=== PATIENT | male | born 1955 | race Caucasian/White ===

== ENCOUNTER 2019-11-19 23:04 | Inpatient (IN) | payer MEDICARE, OTHER ==
[~2019-11-19] VITALS: Ht 165.1 cm; Wt 88.6 kg
[2019-11-19 23:48] LABS: BASOPHILS ABSOLUTE AUTO 0.08 K/mm3 (0.00-0.23); BASOPHILS PERCENT AUTO 1 % (0-2); EOSINOPHILS ABSOLUTE AUTO 0.47 K/mm3 (0.00-0.68); EOSINOPHILS PERCENT AUTO 3 % (0-6); Hematocrit 33.7 % (37.0-53.0); Hemoglobin 10.5 g/dL (13.5-17.5); IMMATURE GRAN ABSOLUTE AUTO 0.13 K/mm3 (0.00-0.10); IMMATURE GRAN PERCENT AUTO 1 % (0-1); LYMPHOCYTES ABSOLUTE AUTO 2.17 K/mm3 (0.84-5.20); LYMPHOCYTES PERCENT AUTO 16 % (21-46); MONOCYTES ABSOLUTE AUTO 0.99 K/mm3 (0.16-1.47); MONOCYTES PERCENT AUTO 7 % (4-13); Mean Corpuscular HGB 30.6 pg (26.0-34.0); Mean Corpuscular HGB Conc 31.2 g/dL (31.5-36.5); Mean Corpuscular Volume 98 fL (80-100); NEUTROPHILS ABSOLUTE AUTO 9.92 K/mm3 (1.96-9.15); NEUTROPHILS PERCENT AUTO 72 % (41-73); Platelet Count 283 K/mm3 (150-400); RDW Coefficient Variation 14.3 % (11.7-14.2); RDW Standard Deviation 51.2 fL (35.1-46.3); Red Blood Cell Count 3.43 M/mm3 (4.30-5.90); White Blood Cell Count 13.76 K/mm3 (4.00-11.30)
[2019-11-20 00:06] LABS: Albumin, Blood 3.3 g/dL (3.4-5.0); Albumin/Globulin Ratio 0.8 (0.8-1.8); Bilirubin, Total 0.3 mg/dL (0.1-1.0); Bun/Creatinine Ratio 6.7 (12.0-20.0); Calcium, Blood 8.8 mg/dL (8.5-10.1); Creatinine, Blood 9.89 mg/dL (0.60-1.20); Potassium, Blood 5.7 mmol/L (3.5-5.5); Total Protein, Blood 7.3 g/dL (6.4-8.2); Troponin I 0.5 ng/mL (0.000-0.040)
[2019-11-20 00:28] LABS: Magnesium, Blood 2.2 mg/dL (1.6-2.4)
[2019-11-20 00:41] LABS: Phosphorus, Blood 10.8 mg/dL (2.5-4.9)
--- NOTE | 2019-11-20 02:21 | NUR ---
64 YR OLD MALE ADMITTED TO FLOOR FROM THE ED. SCHEDULED FOR DIALYSIS TODAY. ALERT AND ORIENTED. ORIENTED TO CALL LIGHT USE. CALL LIGHT IN REACH.
--- NOTE | 2019-11-20 05:06 | NUR ---
64 YR OLD MALE ADMITTED TO FLOOR FROM THE ED WITH DX OF FLUID OVERLOAD AND HAVING CHEST PAIN. DUE FOR HEMODIALYSIS TODAY. ORIENTED TO USE OF CALL LIGHT, CALL LIGHT IN REACH. RECEIVED ANALGESIC FOR CHEST PAIN AFTER MD WAS NOTIFIED RE SAID COMPLAINT - SEE MAR FOR DETAILS. CURRENTLY ASYMPTOMATIC.
[2019-11-20 09:01] LABS: Hematocrit 29.7 % (37.0-53.0); Hemoglobin 9.3 g/dL (13.5-17.5); Mean Corpuscular HGB 30.4 pg (26.0-34.0); Mean Corpuscular HGB Conc 31.3 g/dL (31.5-36.5); Mean Corpuscular Volume 97 fL (80-100); Mean Platelet Volume 9.9 fL (9.1-12.4); Platelet Count 247 K/mm3 (150-400); RDW Coefficient Variation 14.2 % (11.7-14.2); RDW Standard Deviation 50.3 fL (35.1-46.3); Red Blood Cell Count 3.06 M/mm3 (4.30-5.90); White Blood Cell Count 10.21 K/mm3 (4.00-11.30)
[2019-11-20 09:22] LABS: CPK Creatine Kinase 118 U/L (39-308); Cholesterol 140 mg/dL (50-200); HDL Cholesterol 47 mg/dL (>39); LDL/HDL RATIO 1.6; Low Density Lipoprotein Chol 75 mg/dL (0-110); Triglycerides 90 mg/dL (30-160); Very Low Density Lipoprot Chol 18 mg/dL (6-32)
[2019-11-20 09:55] LABS: Albumin, Blood 2.9 g/dL (3.4-5.0); Albumin/Globulin Ratio 0.9 (0.8-1.8); Bilirubin, Total 0.3 mg/dL (0.1-1.0); Calcium, Blood 8.5 mg/dL (8.5-10.1); Globulin, Blood 3.4 g/dL (2.2-4.0); Potassium, Blood 5.5 mmol/L (3.5-5.5); Total Protein, Blood 6.3 g/dL (6.4-8.2)
[2019-11-20 10:04] LABS: Bun/Creatinine Ratio 6.5 (12.0-20.0); Creatinine, Blood 9.96 mg/dL (0.60-1.20)
--- NOTE | 2019-11-20 10:13 | NUR ---
LEFT MESSAGE ON VOICE MAIL; CREAT. BUMPED UP LITTLE TO 9.9 IS GETTING DIALYSIS NOW, TROP WENT FROM 0.5 TO 1.180, ALSO C/O MIDSTERNAL TO ABD PAIN. DENIES NAUSEA, DIAPHORESIS OR RAD TO ARMS OR NECK. STS GOT GI COCKTAIL IN E.R. AND IT HELPED. DESCRIBES ACID REFLUX. EMAR HAS GI COCKTAIL FOR TONIGHT ONE TIME. AWAITING ORDERS.
--- NOTE | 2019-11-20 12:55 | NUR ---
Echocardiogram completed.
--- NOTE | 2019-11-20 14:18 | NUR ---
FAXED REQUEST FOR MED LIST TO [facility] THIS AM. NO RESPONSE. CALLED [facility] AT [phone] WILL FAX OVER.
[2019-11-20 15:24] LABS: Troponin I 2.15 ng/mL (0.000-0.040)
[2019-11-20] MEDS ORDERED: ASPIR 8181 M1 PO (17:11)
[2019-11-20] MEDS ORDERED: ATOR20 PO (17:12)
[2019-11-20] MEDS ORDERED: BUPR150ER PO (17:13)
[2019-11-20] MEDS ORDERED: CINA30 PO (17:14)
[2019-11-20] MEDS ORDERED: CLOP75 PO (17:16)
[2019-11-20] MEDS ORDERED: METR250 PO (17:17)
[2019-11-20] MEDS ORDERED: CYAN500 PO (17:17)
[2019-11-20] MEDS ORDERED: Fludrocortison0.1 MG PO (17:18)
[2019-11-20] MEDS ORDERED: MIDO5 PO (17:20)
[2019-11-20] MEDS ORDERED: LEVFLO500 PO (17:20)
[2019-11-20] MEDS ORDERED: TOPROL XL25 MG PO (17:21)
[2019-11-20] MEDS ORDERED: Calcium Acetat667 MG PO (17:22)
[2019-11-20] MEDS ORDERED: FAMO20 PO (17:22)
[2019-11-20] MEDS ORDERED: FERRIC CITRATE210 MG PO (17:28)
[2019-11-20] MEDS ORDERED: ALUM320SU PO (17:29)
--- NOTE | 2019-11-20 17:49 | NUR ---
ALERT. ORIENTED. INDEPENDENT IN ROOM. STEADY GAIT. NOTIFIED MEDS HAVE BEEN RECONCILLED AT ABOUT 1730. UNLABORED RESPIRATIONS. COOPERATIVE. ABLE TO MAKE NEEDS KNOWN. HAD DIALYSIS TODAY AND TOLERATED WELL. PROOF PRESS OPERATOR WAS IN TO SEE. TELE ON. WILL CONTINUE TO MONITOR.
[2019-11-21 03:07] LABS: Hematocrit 30.9 % (37.0-53.0); Hemoglobin 9.6 g/dL (13.5-17.5)
[2019-11-21 03:31] LABS: Magnesium, Blood 2.1 mg/dL (1.6-2.4)
[2019-11-21 03:43] LABS: Albumin, Blood 2.7 g/dL (3.4-5.0); Anion Gap 10 mmol/L (6-16); Blood Urea Nitrogen 49 mg/dL (8-24); Bun/Creatinine Ratio 5.7 (12.0-20.0); CO2, Blood 28 mmol/L (21-32); Calcium, Blood 8.6 mg/dL (8.5-10.1); Chloride, Blood 102 mmol/L (98-108); Creatinine, Blood 8.61 mg/dL (0.60-1.20); Glomerular Filtration Rate 7 (60-); Glucose, Blood 147 mg/dL (70-99); Phosphorus, Blood 8.7 mg/dL (2.5-4.9); Potassium, Blood 4.7 mmol/L (3.5-5.5); Sodium, Blood 140 mmol/L (136-145)
--- NOTE | 2019-11-21 03:49 | NUR ---
LAB CALLED WITH ELEVATED LABS (SEE DOCUMENTATION). CREATININE, PHOSPHORUS AND TROPONIN LOWER ROSSI EARLIER LEVELS. PT ASYMPTOMATIC. HEP DRIP CONTINUES. RESTING QUIETLY. CALL LIGHT IN REACH.
--- NOTE | 2019-11-21 05:13 | NUR ---
HAS BEEN RESTING QUIETLY WITH FEW INTERRUPTIONS. HEPARIN DRIP CONTINUES - SEE MAR FOR RATE, ETC DETAILS. ALTHOUGH SOME LABS ARE ELEVATED, THEY ARE LESS THAN THEY WERE BEFORE. CHARGE NURSE NOTIFIED. CALL LIGHT IN REACH.
--- NOTE | 2019-11-21 17:45 | NUR ---
ALERT. ORIENTED. INDEPENDENT IN ROOM. OFF OF HEPARIN IV. HAS NOT C/O; SOB, C.P/PRESSURE OR NAUSEA. UNLABORED RESPIRATIONS. TOLERATED DIALYSIS WELL. HX DEPRESSION AND HAS STATED HE HAS THOUGHT ABOUT STOPPING DIALYSIS. PER PATIENT AND V.S. FROM DIALYSIS PATIENT NEEDS TO TAKE HIS METOPROLOL PRIOR TO DIALYSIS. WCTM
--- NOTE | 2019-11-22 03:14 | NUR ---
Has been resting quietly with few interuptions since HS. No noted acute physical distress, or complaints voiced. Call light in reach.
[2019-11-22 05:09] LABS: Hematocrit 32.6 % (37.0-53.0); Hemoglobin 10.1 g/dL (13.5-17.5)
[2019-11-22 06:01] LABS: Magnesium, Blood 2.2 mg/dL (1.6-2.4)
[2019-11-22 06:08] LABS: Albumin, Blood 2.9 g/dL (3.4-5.0); Anion Gap 11 mmol/L (6-16); Blood Urea Nitrogen 41 mg/dL (8-24); Bun/Creatinine Ratio 5.1 (12.0-20.0); CO2, Blood 30 mmol/L (21-32); Calcium, Blood 8.8 mg/dL (8.5-10.1); Chloride, Blood 98 mmol/L (98-108); Glomerular Filtration Rate 7 (60-); Glucose, Blood 113 mg/dL (70-99); Phosphorus, Blood 8.6 mg/dL (2.5-4.9); Potassium, Blood 4.4 mmol/L (3.5-5.5); Sodium, Blood 139 mmol/L (136-145)
[2019-11-22] MEDS ORDERED: ACET325 PO (10:12)
[2019-11-22] MEDS ORDERED: LIDO700A20 TOP (10:12)
[2019-11-22] MEDS ORDERED: GUAIFENESIN-DM 15 ML PO (10:16)
== END 2019-11-22 13:02 | disposition home or self-care (01) | DRG 280 ==
LOC: ER 23:04 → MEDS 23:05 → ENPENDDIS 11-22 09:55 → MEDS 11-22 13:02
PROVIDERS: Emergency Medicine; Internal Medicine Nephrology; ADMIT Internal Medicine
PROC: 5A1D70Z Performance of Urinary Filtration, Intermittent, Less than 6 Hours Per Day (ICD-10-PCS; principal; 2019-11-20)
DX: I13.2 Hypertensive heart and chronic kidney disease with heart failure and with stage 5 chronic kidney disease, or end stage renal disease (principal); I50.33 Acute on chronic diastolic (congestive) heart failure; I21.4 Non-ST elevation (NSTEMI) myocardial infarction; N18.6 End stage renal disease; J96.01 Acute respiratory failure with hypoxia; N25.81 Secondary hyperparathyroidism of renal origin; E11.22 Type 2 diabetes mellitus with diabetic chronic kidney disease; Z99.2 Dependence on renal dialysis; I25.10 Atherosclerotic heart disease of native coronary artery without angina pectoris; F32.9 Major depressive disorder, single episode, unspecified; K21.9 Gastro-esophageal reflux disease without esophagitis; Z95.5 Presence of coronary angioplasty implant and graft; E78.5 Hyperlipidemia, unspecified; E66.9 Obesity, unspecified; Z87.891 Personal history of nicotine dependence; E87.5 Hyperkalemia; D63.1 Anemia in chronic kidney disease; E88.09 Other disorders of plasma-protein metabolism, not elsewhere classified; I25.2 Old myocardial infarction; Z66 Do not resuscitate; Z68.30 Body mass index [BMI] 30.0-30.9, adult
CPT/HCPCS: 36415; 71045; 80053; 80061; 80069; 82550; 83690; 83735; 83880; 84100; 84484; 85014; 85018; 85025; 85027; 85730; 93005; 93010; 93306; 96372; 96374; 96375; 96376; 99285-25; A9270; A9270-GY; G0378; J0881; J1644; J2405; J3010

== ENCOUNTER 2019-11-25 14:46 | Emergency (ER) | payer MEDICARE ==
[~2019-11-25] VITALS: Ht 165.1 cm; Wt 86.2 kg
[~2019-11-25 14:46] MED LIST: ACET325 PO; ALUM320SU PO; ASPIR 8181 M1 PO; ATOR20 PO; BUPR150ER PO; CINA30 PO; CLOP75 PO; CYAN500 PO; Calcium Acetat667 MG PO; FAMO20 PO; FERRIC CITRATE210 MG PO; Fludrocortison0.1 MG PO; GUAIFENESIN-DM 15 ML PO; LEVFLO500 PO; LIDO700A20 TOP; METR250 PO; MIDO5 PO; TOPROL XL25 MG PO
[2019-11-25 15:28] LABS: BASOPHILS ABSOLUTE AUTO 0.06 K/mm3 (0.00-0.23); BASOPHILS PERCENT AUTO 1 % (0-2); EOSINOPHILS ABSOLUTE AUTO 0.39 K/mm3 (0.00-0.68); EOSINOPHILS PERCENT AUTO 4 % (0-6); Hematocrit 33.7 % (37.0-53.0); Hemoglobin 10.4 g/dL (13.5-17.5); IMMATURE GRAN PERCENT AUTO 1 % (0-1); LYMPHOCYTES ABSOLUTE AUTO 1.67 K/mm3 (0.84-5.20); LYMPHOCYTES PERCENT AUTO 18 % (21-46); MONOCYTES ABSOLUTE AUTO 0.93 K/mm3 (0.16-1.47); MONOCYTES PERCENT AUTO 10 % (4-13); Mean Corpuscular HGB 31.2 pg (26.0-34.0); Mean Corpuscular HGB Conc 30.9 g/dL (31.5-36.5); Mean Platelet Volume 9.6 fL (9.1-12.4); NEUTROPHILS ABSOLUTE AUTO 5.93 K/mm3 (1.96-9.15); NEUTROPHILS PERCENT AUTO 65 % (41-73); Platelet Count 326 K/mm3 (150-400); RDW Coefficient Variation 14.1 % (11.7-14.2); RDW Standard Deviation 53.1 fL (35.1-46.3); Red Blood Cell Count 3.33 M/mm3 (4.30-5.90); White Blood Cell Count 9.08 K/mm3 (4.00-11.30)
[2019-11-25 15:30] LABS: Mean Corpuscular Volume 101 fL (80-100)
[2019-11-25 15:38] LABS: Albumin, Blood 3.3 g/dL (3.4-5.0); Albumin/Globulin Ratio 0.9 (0.8-1.8); Bilirubin, Total 0.3 mg/dL (0.1-1.0); Bun/Creatinine Ratio 5.1 (12.0-20.0); Calcium, Blood 8.9 mg/dL (8.5-10.1); Creatinine, Blood 7.84 mg/dL (0.60-1.20); Globulin, Blood 3.7 g/dL (2.2-4.0); Potassium, Blood 5.1 mmol/L (3.5-5.5); Troponin I 0.301 ng/mL (0.000-0.040)
[2019-11-25] MEDS ORDERED: Norco 5-325 Ta1 EACH PO (16:19)
== END 2019-11-25 17:17 | disposition home or self-care (01) ==
LOC: ER 14:46
PROVIDERS: Emergency Medicine
DX: R07.89 Other chest pain (principal); R10.32 Left lower quadrant pain; I12.0 Hypertensive chronic kidney disease with stage 5 chronic kidney disease or end stage renal disease; N18.6 End stage renal disease; E78.5 Hyperlipidemia, unspecified; I25.10 Atherosclerotic heart disease of native coronary artery without angina pectoris; K21.9 Gastro-esophageal reflux disease without esophagitis; F32.9 Major depressive disorder, single episode, unspecified; I25.2 Old myocardial infarction; Z88.8 Allergy status to other drugs, medicaments and biological substances; F17.200 Nicotine dependence, unspecified, uncomplicated; Z79.899 Other long term (current) drug therapy; Z79.82 Long term (current) use of aspirin; Z79.01 Long term (current) use of anticoagulants; Z99.2 Dependence on renal dialysis
CPT/HCPCS: 36415; 71045; 74176; 80053; 84484; 85025; 93005; 93010; 96374; 96375; 99284-25; J2405; J3010

== ENCOUNTER 2019-12-01 08:11 | Inpatient (IN) | payer MEDICARE, OTHER ==
[~2019-12-01] VITALS: Ht 165.1 cm; Wt 89.4 kg
[~2019-12-01 08:11] MED LIST changes: -ATOR20 PO; +ATOR40TA PO; -Fludrocortison0.1 MG PO; -MIDO5 PO; +Norco 5-325 Ta1 EACH PO
[2019-12-01 08:54] LABS: BASOPHILS ABSOLUTE AUTO 0.07 K/mm3 (0.00-0.23); BASOPHILS PERCENT AUTO 1 % (0-2); EOSINOPHILS ABSOLUTE AUTO 0.53 K/mm3 (0.00-0.68); EOSINOPHILS PERCENT AUTO 6 % (0-6); Hematocrit 34.9 % (37.0-53.0); Hemoglobin 10.8 g/dL (13.5-17.5); IMMATURE GRAN ABSOLUTE AUTO 0.08 K/mm3 (0.00-0.10); IMMATURE GRAN PERCENT AUTO 1 % (0-1); LYMPHOCYTES ABSOLUTE AUTO 1.89 K/mm3 (0.84-5.20); LYMPHOCYTES PERCENT AUTO 21 % (21-46); MONOCYTES ABSOLUTE AUTO 0.97 K/mm3 (0.16-1.47); MONOCYTES PERCENT AUTO 11 % (4-13); Mean Corpuscular HGB 31.1 pg (26.0-34.0); Mean Corpuscular HGB Conc 30.9 g/dL (31.5-36.5); Mean Corpuscular Volume 101 fL (80-100); Mean Platelet Volume 9.5 fL (9.1-12.4); NEUTROPHILS ABSOLUTE AUTO 5.67 K/mm3 (1.96-9.15); NEUTROPHILS PERCENT AUTO 62 % (41-73); Platelet Count 316 K/mm3 (150-400); RDW Coefficient Variation 14.7 % (11.7-14.2); RDW Standard Deviation 54.1 fL (35.1-46.3); Red Blood Cell Count 3.47 M/mm3 (4.30-5.90); White Blood Cell Count 9.21 K/mm3 (4.00-11.30)
[2019-12-01 09:12] LABS: Troponin I 0.086 ng/mL (0.000-0.040)
[2019-12-01 09:20] LABS: Bun/Creatinine Ratio 5.6 (12.0-20.0); Calcium, Blood 8.8 mg/dL (8.5-10.1); Creatinine, Blood 8.76 mg/dL (0.60-1.20); Potassium, Blood 4.6 mmol/L (3.5-5.5)
[2019-12-01 12:58] LABS: International Normalized Ratio 0.96; Prothrombin Time Results 10.3 Sec (9.7-11.5)
[2019-12-01] MEDS ORDERED: Midodrine HCl10 MG PO (13:19)
[2019-12-01] MEDS ORDERED: Fludrocortison0.1 MG PO (13:19)
[2019-12-01] MEDS ORDERED: HYDROCODONE-AC1 EAC1 PO (13:21)
[2019-12-02 01:50] LABS: BASOPHILS ABSOLUTE AUTO 0.05 K/mm3 (0.00-0.23); BASOPHILS PERCENT AUTO 1 % (0-2); EOSINOPHILS ABSOLUTE AUTO 0.43 K/mm3 (0.00-0.68); EOSINOPHILS PERCENT AUTO 5 % (0-6); Hemoglobin 9.8 g/dL (13.5-17.5); IMMATURE GRAN ABSOLUTE AUTO 0.05 K/mm3 (0.00-0.10); IMMATURE GRAN PERCENT AUTO 1 % (0-1); LYMPHOCYTES ABSOLUTE AUTO 1.85 K/mm3 (0.84-5.20); LYMPHOCYTES PERCENT AUTO 23 % (21-46); MONOCYTES PERCENT AUTO 9 % (4-13); Mean Corpuscular HGB 31.2 pg (26.0-34.0); Mean Corpuscular HGB Conc 31.6 g/dL (31.5-36.5); Mean Corpuscular Volume 99 fL (80-100); Mean Platelet Volume 9.3 fL (9.1-12.4); NEUTROPHILS ABSOLUTE AUTO 4.92 K/mm3 (1.96-9.15); NEUTROPHILS PERCENT AUTO 62 % (41-73); Platelet Count 282 K/mm3 (150-400); RDW Coefficient Variation 14.6 % (11.7-14.2); RDW Standard Deviation 52.7 fL (35.1-46.3); Red Blood Cell Count 3.14 M/mm3 (4.30-5.90)
[2019-12-02 02:06] LABS: Albumin, Blood 2.9 g/dL (3.4-5.0); Albumin/Globulin Ratio 0.9 (0.8-1.8); Bilirubin, Total 0.3 mg/dL (0.1-1.0); Bun/Creatinine Ratio 5.3 (12.0-20.0); Calcium, Blood 8.9 mg/dL (8.5-10.1); Creatinine, Blood 7.18 mg/dL (0.60-1.20); Globulin, Blood 3.2 g/dL (2.2-4.0); Magnesium, Blood 2.1 mg/dL (1.6-2.4); Phosphorus, Blood 5.6 mg/dL (2.5-4.9); Total Protein, Blood 6.1 g/dL (6.4-8.2)
== END 2019-12-02 16:50 | disposition short-term general hospital (02) | DRG 280 ==
LOC: ER 08:11 → MEDS 15:26 → ICUE 12-02 10:45
PROVIDERS: Nurse Practitioner Acute Care; Pharmacist; Physician Assistant; ADMIT Internal Medicine
PROC: B2111ZZ Fluoroscopy of Multiple Coronary Arteries using Low Osmolar Contrast (ICD-10-PCS; principal; 2019-12-02)
DX: I21.4 Non-ST elevation (NSTEMI) myocardial infarction (principal); N18.6 End stage renal disease; I13.2 Hypertensive heart and chronic kidney disease with heart failure and with stage 5 chronic kidney disease, or end stage renal disease; Z79.82 Long term (current) use of aspirin; I25.10 Atherosclerotic heart disease of native coronary artery without angina pectoris; K21.9 Gastro-esophageal reflux disease without esophagitis; Z99.2 Dependence on renal dialysis; E78.5 Hyperlipidemia, unspecified; I25.2 Old myocardial infarction; Z79.02 Long term (current) use of antithrombotics/antiplatelets; Z87.891 Personal history of nicotine dependence; Z66 Do not resuscitate; E11.22 Type 2 diabetes mellitus with diabetic chronic kidney disease; E66.9 Obesity, unspecified; Z95.5 Presence of coronary angioplasty implant and graft; Z68.31 Body mass index [BMI] 31.0-31.9, adult
CPT/HCPCS: 36415; 71046; 76937; 80048; 80053; 82947; 83735; 83880; 84100; 84484; 85025; 85347; 85610; 85730; 93005; 93010; 93454; 96374; 99152; 99153; 99285-25; A9270-GY; C1769; C1894; J0881; J1644; J2250; J3010; J7030; Q9967

== ENCOUNTER 2019-12-18 05:10 | Inpatient (IN) | payer MEDICARE ==
[~2019-12-18] VITALS: Ht 165.1 cm; Wt 88.5 kg
[~2019-12-18 05:10] MED LIST changes: +Fludrocortison0.1 MG PO; +HYDROCODONE-AC1 EAC1 PO; +Midodrine HCl10 MG PO
[2019-12-18 05:34] LABS: BASOPHILS ABSOLUTE AUTO 0.13 K/mm3 (0.00-0.23); BASOPHILS PERCENT AUTO 1 % (0-2); EOSINOPHILS ABSOLUTE AUTO 0.86 K/mm3 (0.00-0.68); EOSINOPHILS PERCENT AUTO 7 % (0-6); Hematocrit 32.8 % (37.0-53.0); Hemoglobin 9.9 g/dL (13.5-17.5); IMMATURE GRAN ABSOLUTE AUTO 0.16 K/mm3 (0.00-0.10); IMMATURE GRAN PERCENT AUTO 1 % (0-1); LYMPHOCYTES ABSOLUTE AUTO 1.34 K/mm3 (0.84-5.20); LYMPHOCYTES PERCENT AUTO 11 % (21-46); MONOCYTES ABSOLUTE AUTO 0.74 K/mm3 (0.16-1.47); MONOCYTES PERCENT AUTO 6 % (4-13); Mean Corpuscular HGB 30.3 pg (26.0-34.0); Mean Corpuscular HGB Conc 30.2 g/dL (31.5-36.5); Mean Corpuscular Volume 100 fL (80-100); Mean Platelet Volume 9.2 fL (9.1-12.4); NEUTROPHILS ABSOLUTE AUTO 9.13 K/mm3 (1.96-9.15); NEUTROPHILS PERCENT AUTO 74 % (41-73); Platelet Count 279 K/mm3 (150-400); RDW Coefficient Variation 14.2 % (11.7-14.2); Red Blood Cell Count 3.27 M/mm3 (4.30-5.90); White Blood Cell Count 12.36 K/mm3 (4.00-11.30)
[2019-12-18 05:47] LABS: International Normalized Ratio 1.01; Prothrombin Time Results 10.8 Sec (9.7-11.5)
[2019-12-18] MEDS ORDERED: Vitamin D2000 UNIT PO (05:52)
[2019-12-18] MEDS ORDERED: Norco 5-325 Ta1 EACH PO (05:53)
[2019-12-18] MEDS ORDERED: FERSU300 PO (05:53)
[2019-12-18 05:59] LABS: Troponin I 0.341 ng/mL (0.000-0.040)
[2019-12-18 06:13] LABS: Albumin, Blood 3.2 g/dL (3.4-5.0); Albumin/Globulin Ratio 0.8 (0.8-1.8); Bilirubin, Total 0.4 mg/dL (0.1-1.0); Bun/Creatinine Ratio 5.8 (12.0-20.0); Calcium, Blood 7.7 mg/dL (8.5-10.1); Creatinine, Blood 9.37 mg/dL (0.60-1.20); Globulin, Blood 3.9 g/dL (2.2-4.0); Total Protein, Blood 7.1 g/dL (6.4-8.2)
--- NOTE | 2019-12-18 13:43 | NUR ---
RECEIVED REPORT FROM SLIME VELA RN, AT 0905. PATIENT HAD ALREADY LEFT ER TO GO TO DIALYSIS. PATIENT HAD SOME PAIN DURING DIALYSIS, PAIN MEDS GIVEN WITH EFFECTIVENESS. PATIENT RETURNED TO MED FLOOR AT 1155. ASSESSMENT,H&P AND MED REC COMPLETED WITH PATIENT ASSISTANCE.
--- NOTE | 2019-12-18 15:04 | NUR ---
PATIENT IS ALERT AND ORIENTED, INDEPENDANT IN ROOM. VITALS ARE STABLE. PATIENT IS PLEASANT AND COOPERATIVE WITH STAFF. C/O PAIN TO HIS BACK TWICE THIS SHIFT WITH SOME EFFECTIVE RESULTS FROM REQUESTED PAIN MEDICATION. PATIENT CALLS FOR STAFF ASSIST APPROPRIATELY. WILL CONTINUE TO MONITOR AND PROVIDE CARE NEEDED,
--- NOTE | 2019-12-18 22:17 | NUR ---
RECEIVED ANALGESIC EARLIER FOR BACK PAIN. VOICED RELIEF THAT HIS TOPONIN LEVELS WERE TRENDING DOWN. ALERT AND ORIENTED. TOOK SHOWER EARLIER AND VOICED FELT "BETTER". CALL LIGHT IN REACH
--- NOTE | 2019-12-18 22:26 | NUR ---
AWAKE C/O "IM DYING...WHA TS GOING ON?" CHARGE NURSE AT [facility] WITH EKG. -
--- NOTE | 2019-12-18 22:35 | NUR ---
PT WITH EMESIS. ANXIOUS. VOCATIONAL ED INSTRUCTOR REPORTS S[place]US TACH. WILL CALL
--- NOTE | 2019-12-18 23:08 | NUR ---
WAS NOTIFIED, ORDERS FOR EKG AND NITRO SL OBTAINED. SEE MAR FOR DETAILS GIVEN. ZOFRAN DMIN IV. O2 PER NC AT 2L/MIN DUE TO SATS DROP IN TO 80'S. CURRENT O2 SAT 98%. RT AT BEDSIDE. NITRO #1 SL DROPPED PAIN TO "ONE OUT OF 5" FROM 06/01.
--- NOTE | 2019-12-18 23:24 | NUR ---
DR PUENTE AT BEDSIDE. RECEIVES #3 OF 3 NITRO SL. VOICED PAIN NOW MAINLY IN BACK.
--- NOTE | 2019-12-18 23:53 | NUR ---
3 SL NITRO WAS ADMINISTERED WHEN MD WAS AT BEDSIDE. MD VOICED EKG WAS WNL AND ORDERED IV FENTANYL (SEE MAR FOR DETAILS - DOSE AND ADMIN TIME). IV FENTANYL ADMIN FOR BACK PAIN. VOICED CHEST AND NECK/UPPER BACK PAIN DECREASED SINCE THE NITRO WAS GIVEN. MORE ALERT, LESS ANXIOUS. REASSURANCE GIVEN. HOB ELEVATED. REST ENCOURAGED. WILL MONITOR. CALL LIGHT IN REACH.
--- NOTE | 2019-12-19 01:20 | NUR ---
RESTING QUIETLY, NO NOTED ACUTE DISTRESS. WILL CONTINUE TO MONITOR. CALL LIGHT INREACH
[2019-12-19 05:00] LABS: Hematocrit 27.9 % (37.0-53.0); Hemoglobin 8.6 g/dL (13.5-17.5)
--- NOTE | 2019-12-19 05:21 | NUR ---
SHIFT SUMMARY EARLIER IN THE SHIFT, PT WAS SLEEPING AND THEN SAT UP AND CALLED OUT FOR THE NURSE. VOICED PAIN RADIATING FROM CHEST TO NECK AND SHOULDER. VS TAKEN. EKG DONE AND MD WAS NOTIFIED. MD CAME TO FLOOR AND ASSESSED PT AT BEDSIDE AND REVIEWED THE EKG. ZOFRAN IV GIVEN FOR N/V AND MD ORDERED NITRO SL FOR CHEST PAINS. NITRO GIVEN SL X 3. CHEST PAINS DECREASED AND BACK PAINS INCREASED. MD ORDERED IV FENANYL FOR BACK PAIN. FENTANYL GIVEN. PAIN SUBSIDED. PT WENT BACK TO SLEEP FOR A WHILE, VS WDL. THEN RECENTLY AWAKENED AGAIN WITH NECK PAIN, RECEIVED TYLENOL PO FOR IT. RESTING QUIETLY WITHOUT NOTED ACUTE DISTRESS AT THIS TIME. CALL LIGHT IN REACH. WILL CONTINUE TO MONITOR. MED TELE MAINTAINED AT [facility].
[2019-12-19 05:27] LABS: Magnesium, Blood 2.3 mg/dL (1.6-2.4)
[2019-12-19 05:35] LABS: Anion Gap 11 mmol/L (6-16); Blood Urea Nitrogen 51 mg/dL (8-24); Bun/Creatinine Ratio 6.3 (12.0-20.0); CO2, Blood 28 mmol/L (21-32); Calcium, Blood 7.7 mg/dL (8.5-10.1); Chloride, Blood 99 mmol/L (98-108); Creatinine, Blood 8.07 mg/dL (0.60-1.20); Glomerular Filtration Rate 7 (60-); Glucose, Blood 217 mg/dL (70-99); Phosphorus, Blood 7.9 mg/dL (2.5-4.9); Potassium, Blood 4.5 mmol/L (3.5-5.5); Sodium, Blood 138 mmol/L (136-145)
--- NOTE | 2019-12-19 18:17 | NUR ---
SHIFT SUMMARY PT INDEPENDENT IN ROOM. STATED HE WANTED TO GO WALK BUT HAD BEEN TOLD HE COULDN'T. EXPLAINED TO PT HE CAN WALK ABOUT ON THE UNIT BUT NO GOING OUTSIDE. HAS HAD NO CHEST PAIN TODAY. GI CONSULT CALLED IN PRIOR TO LUNCH. SPOKE WITH DR. RAMIERZ ABOUT 2ND UNIT OF BLOOD ORDERED THIS A.M. AND HE CLARIFIED ONLY 1 UNIT TODAY. APPEARS ANXIOUS AT TIMES AND WHEN ASKED IF HE GETS ANXIOUS EASILY HE RESPONDS YES. REQESTING LIDOCAINE PATCH TO BE PLACED LATER TODAY ON L BACK. TAGADERM APPLIED OVER IT TO KEEP IT IN PLACE.
[2019-12-20 04:57] LABS: Hematocrit 32.8 % (37.0-53.0); Hemoglobin 10.1 g/dL (13.5-17.5)
--- NOTE | 2019-12-20 05:18 | NUR ---
SHIFT SUMMARY PT HAS BEEN RESTING QUIETLY WITH FW INTERRUPTIONS THIS SHIFT. THOSE INTERRUPTIONS INVLUDED COMPLAINTS OF PAIN/DISCOMFORT IN NECK AND BACK. SEE MAR FOR MEDS GIVEN AND TIME MEDS GIVEN. CALL LIGHT IN REACH. DENIED CHEST PAINS THIS SHIFT.
[2019-12-20 05:21] LABS: Magnesium, Blood 2.1 mg/dL (1.6-2.4)
[2019-12-20 05:22] LABS: Anion Gap 6 mmol/L (6-16); Blood Urea Nitrogen 46 mg/dL (8-24); Bun/Creatinine Ratio 6.3 (12.0-20.0); CO2, Blood 32 mmol/L (21-32); Calcium, Blood 8.1 mg/dL (8.5-10.1); Chloride, Blood 98 mmol/L (98-108); Glomerular Filtration Rate 8 (60-); Glucose, Blood 162 mg/dL (70-99); Phosphorus, Blood 5.6 mg/dL (2.5-4.9); Potassium, Blood 4.1 mmol/L (3.5-5.5); Sodium, Blood 136 mmol/L (136-145)
--- NOTE | 2019-12-20 09:30 | NUR ---
PATIENT TAKEN IN W/C TO DIALYSIS.
--- NOTE | 2019-12-20 17:02 | NUR ---
PATIENT A/OX4, UP INDEPENDENT IN ROOM. VSS, ON RA. HAD DIALYSIS TODAY. DR BOLTON CONSULTED TODAY AND PECID DOSAGE WAS CHANGED. GI COCKTAIL GIVEN X1 THIS SHIFT FOR GERD. SR ON TELE, DENIES ANY CP. FISTULA TO L UPPER ARM WNL. IV TO R AC WNL AND SL. PATIENT IS CALM AND COOPERATIVE WITH CARE AND CALLS APPROPRIATELY FOR ASSISTANCE. TOLERATING RENAL DIET.
[2019-12-21 04:32] LABS: Hematocrit 34.4 % (37.0-53.0); Hemoglobin 10.7 g/dL (13.5-17.5)
--- NOTE | 2019-12-21 04:39 | NUR ---
SHIFT SUMMARY PT PLEASANT AND COOPERATIVE. DID NOT SLEEP WELL THIS EVENING. PT REPORTS THAT THIS IS NORMAL FOR HIM. PT CONTINUED TO REPORT BACK PAIN JUST OVER THE SCAPULA. HOWEVER PT REPORTED IT TO BE BETTER THAN WHEN HE FIRST CAME INTO THE HOSPITAL. MEDICATED X 2 W/ ROXICODONE 5 MG. PT DENIED ANY CP OR SOB. TELEMETRY READING SR IN THE 80'S THIS EVENING. VITAL SIGNS STABLE. NO ACUTE CHANGES THIS SHIFT. WILL CONTINUE TO MONITOR AND REPORT TO DAY RN.
[2019-12-21 04:51] LABS: Albumin, Blood 3.2 g/dL (3.4-5.0); Anion Gap 7 mmol/L (6-16); Blood Urea Nitrogen 48 mg/dL (8-24); Bun/Creatinine Ratio 6.9 (12.0-20.0); CO2, Blood 33 mmol/L (21-32); Calcium, Blood 8.8 mg/dL (8.5-10.1); Chloride, Blood 96 mmol/L (98-108); Creatinine, Blood 6.96 mg/dL (0.60-1.20); Glomerular Filtration Rate 8 (60-); Glucose, Blood 172 mg/dL (70-99); Magnesium, Blood 2.4 mg/dL (1.6-2.4); Phosphorus, Blood 5.7 mg/dL (2.5-4.9); Potassium, Blood 4.3 mmol/L (3.5-5.5); Sodium, Blood 136 mmol/L (136-145)
--- NOTE | 2019-12-21 18:28 | NUR ---
PATIENT REPORTS PAIN TO BACK/CHEST IMPROVED TODAY. VSS, ON RA. UP INDEPENDENTLY IN ROOM. OXYCODONE GIVEN X2 THIS SHIFT AND FLEXERILX1. BENGAY ALSO STARTED TODAY. GI COCKTAIL GIVEN X1 AND PATIENT WAS PAIN FREE AFTER THIS FOR SEVERAL HOURS. 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 NO DIALYSIS TODAY. CALM AND COOPERATIVE WITH CARE, CALLS APPROPRIATELY FOR ASSISTANCE. TOLERATING RENAL DIET.
--- NOTE | 2019-12-22 04:46 | NUR ---
SHIFT SUMMARY NO ACUTE CHANGES THIS EVENING. PT CONTINUES TO REPORT PAIN OVER LEFT SCAPULA. IMPROVED FOR SOME TIME WITH FLEXERIL AND ROXICODONE BUT RETURNS AFTER A TIME. SEE EMAR. NO COMPLAINTS OF GERD THIS EVENING. FISTULA TO LFA WITH GOOD THRILL AND BRUIT. PT DID NOT SLEEP WELL AGAIN THIS EVENING. PT REPORTS THAT THIS IS HIS BASELINE. PT RESTING IN BED AT THIS TIME. WILL CONTINUE TO MONITOR AND REPORT TO DAY RN.
[2019-12-22 05:01] LABS: Hematocrit 34.7 % (37.0-53.0); Hemoglobin 11.1 g/dL (13.5-17.5)
[2019-12-22 05:22] LABS: Magnesium, Blood 2.7 mg/dL (1.6-2.4)
[2019-12-22 05:43] LABS: Albumin, Blood 3.3 g/dL (3.4-5.0); Anion Gap 9 mmol/L (6-16); Blood Urea Nitrogen 65 mg/dL (8-24); Bun/Creatinine Ratio 7.5 (12.0-20.0); CO2, Blood 29 mmol/L (21-32); Calcium, Blood 8.8 mg/dL (8.5-10.1); Chloride, Blood 100 mmol/L (98-108); Creatinine, Blood 8.63 mg/dL (0.60-1.20); Glomerular Filtration Rate 7 (60-); Glucose, Blood 138 mg/dL (70-99); Phosphorus, Blood 5.9 mg/dL (2.5-4.9); Potassium, Blood 4.7 mmol/L (3.5-5.5); Sodium, Blood 138 mmol/L (136-145)
--- NOTE | 2019-12-22 08:00 | NUR ---
PT PLEASNT COOP A/O. STATES BACK GARICA BETTER SINCE MED. 11/30. H/R REG, LOUD MURMER NOTED. PT STATES ABOUT 2 WEEKS AGO HAD ANGIO AND 3 STENTS PLACED IN HEART. IN [place]. DENIES CHEST PAIN AT THIS TIME. LUNGS CLEAR, RESP EASY, UNLABORED. ON R.A. BT X4 LAST BM TODAY. VOIDS VERY LITTLE. OLIGURIC. ON DIALYSIS. FISTULA YONATHAN. INDEPENDANT IN ROOM. PT STATES GOING HOME PER DR RAMIREZ TODAY. BED IN LOW POSITION, LITO LLITE IN REACH, CALLS APPROP
--- NOTE | 2019-12-22 09:00 | NUR ---
PT TO DIALYSIS
[2019-12-22] MEDS ORDERED: CYCLOBENZAPRINE5 MG PO (12:03)
[2019-12-22] MEDS ORDERED: FAMO10 PO (12:08)
--- NOTE | 2019-12-22 12:36 | NUR ---
PT RETURNED FROM DIALYSIS. PENDING D.C.
--- NOTE | 2019-12-22 13:04 | NUR ---
DISCHARGE REVIEWED. PT STATES UNDERSTANDS MEDS AND INSTRUCT. NO TELE. IV PULLED INTACT. PT STATES DR RAMIREZ SEES ON WEDNESDAY FOR DIALYSIS. PT STATES DR FAYE OFC TO CALL HIM FOR APPT. HANDED PT [facility] HARD COPY. PEND RIDE.
--- NOTE | 2019-12-22 13:49 | NUR ---
PT WHEELED TO DOOR BY AIDE. AT 3038
== END 2019-12-22 13:41 | disposition home or self-care (01) | DRG 551 ==
LOC: ER 05:10 → MEDS 05:11
PROVIDERS: Emergency Medicine; Internal Medicine Nephrology; ADMIT Internal Medicine
PROC: 5A1D70Z Performance of Urinary Filtration, Intermittent, Less than 6 Hours Per Day (ICD-10-PCS; principal; 2019-12-18)
PROC: 30233N1 Transfusion of Nonautologous Red Blood Cells into Peripheral Vein, Percutaneous Approach (ICD-10-PCS; 2019-12-19)
PROC: 5A1D70Z Performance of Urinary Filtration, Intermittent, Less than 6 Hours Per Day (ICD-10-PCS; 2019-12-20)
PROC: 5A1D70Z Performance of Urinary Filtration, Intermittent, Less than 6 Hours Per Day (ICD-10-PCS; 2019-12-22)
DX: M54.9 Dorsalgia, unspecified (principal); N18.6 End stage renal disease; I13.2 Hypertensive heart and chronic kidney disease with heart failure and with stage 5 chronic kidney disease, or end stage renal disease; I50.32 Chronic diastolic (congestive) heart failure; K21.9 Gastro-esophageal reflux disease without esophagitis; I25.10 Atherosclerotic heart disease of native coronary artery without angina pectoris; E11.22 Type 2 diabetes mellitus with diabetic chronic kidney disease; F32.9 Major depressive disorder, single episode, unspecified; E78.5 Hyperlipidemia, unspecified; F17.200 Nicotine dependence, unspecified, uncomplicated; E66.9 Obesity, unspecified; E87.70 Fluid overload, unspecified; E88.09 Other disorders of plasma-protein metabolism, not elsewhere classified; D63.1 Anemia in chronic kidney disease; E87.5 Hyperkalemia; Z66 Do not resuscitate; Z95.5 Presence of coronary angioplasty implant and graft; Z99.2 Dependence on renal dialysis; Z88.8 Allergy status to other drugs, medicaments and biological substances; Z79.02 Long term (current) use of antithrombotics/antiplatelets; Z79.82 Long term (current) use of aspirin; Z79.899 Other long term (current) drug therapy; Z68.32 Body mass index [BMI] 32.0-32.9, adult
CPT/HCPCS: 36415; 36430; 71275; 74175; 80053; 80069; 82947; 83735; 84484; 85014; 85018; 85025; 85610; 85730; 86317; 86850; 86900; 86901; 86923; 93005; 93010; 96374-59; 96375; 99285-25; A9270-GY; G0257; G0378; J0881; J2405; J3010; J7512; P9016; Q9967

== ENCOUNTER 2020-01-17 02:02 | Inpatient (IN) | payer MEDICARE, OTHER ==
[~2020-01-17] VITALS: Ht 165.1 cm; Wt 91.8 kg
[~2020-01-17 02:02] MED LIST changes: +CYCLOBENZAPRINE5 MG PO; +FAMO10 PO; +FERSU300 PO; +Vitamin D2000 UNIT PO
[2020-01-17 02:20] LABS: BASOPHILS ABSOLUTE AUTO 0.12 K/mm3 (0.00-0.23); BASOPHILS PERCENT AUTO 1 % (0-2); EOSINOPHILS ABSOLUTE AUTO 0.88 K/mm3 (0.00-0.68); EOSINOPHILS PERCENT AUTO 6 % (0-6); Hematocrit 37.8 % (37.0-53.0); Hemoglobin 11.3 g/dL (13.5-17.5); IMMATURE GRAN ABSOLUTE AUTO 0.16 K/mm3 (0.00-0.10); IMMATURE GRAN PERCENT AUTO 1 % (0-1); LYMPHOCYTES ABSOLUTE AUTO 3.51 K/mm3 (0.84-5.20); LYMPHOCYTES PERCENT AUTO 22 % (21-46); MONOCYTES ABSOLUTE AUTO 1.35 K/mm3 (0.16-1.47); MONOCYTES PERCENT AUTO 8 % (4-13); Mean Corpuscular HGB 29.9 pg (26.0-34.0); Mean Corpuscular HGB Conc 29.9 g/dL (31.5-36.5); Mean Corpuscular Volume 100 fL (80-100); Mean Platelet Volume 9.7 fL (9.1-12.4); NEUTROPHILS ABSOLUTE AUTO 10.03 K/mm3 (1.96-9.15); NEUTROPHILS PERCENT AUTO 63 % (41-73); Platelet Count 372 K/mm3 (150-400); RDW Coefficient Variation 14.8 % (11.7-14.2); RDW Standard Deviation 54.5 fL (35.1-46.3); Red Blood Cell Count 3.78 M/mm3 (4.30-5.90); White Blood Cell Count 16.05 K/mm3 (4.00-11.30)
[2020-01-17 02:25] LABS: PCO2 Arterial 58.9 mmHg (35-45); PO2 Arterial 150 mmHg (80-100)
[2020-01-17 02:26] LABS: pH Blood Arterial 7.22 (7.35-7.45)
[2020-01-17 02:42] LABS: Troponin I 0.072 ng/mL (0.000-0.040)
[2020-01-17 02:46] LABS: Albumin, Blood 3.4 g/dL (3.4-5.0); Albumin/Globulin Ratio 0.7 (0.8-1.8); Bilirubin, Total 0.3 mg/dL (0.1-1.0); Bun/Creatinine Ratio 7.2 (12.0-20.0); Calcium, Blood 8.3 mg/dL (8.5-10.1); Creatinine, Blood 9.29 mg/dL (0.60-1.20); Globulin, Blood 4.7 g/dL (2.2-4.0); Potassium, Blood 5.1 mmol/L (3.5-5.5); Total Protein, Blood 8.1 g/dL (6.4-8.2)
[2020-01-17 04:42] LABS: CHOL/HDL RATIO 3.1; Cholesterol 174 mg/dL (50-200); HDL Cholesterol 57 mg/dL (>39); LDL/HDL RATIO 1.4; Low Density Lipoprotein Chol 81 mg/dL (0-110); Triglycerides 181 mg/dL (30-160); Very Low Density Lipoprot Chol 36 mg/dL (6-32)
[2020-01-17 05:41] LABS: Source, Urine Catheter
[2020-01-17 05:44] LABS: Appearance, Urine Clear (Clear); Bilirubin, Urine Neg (Neg); Blood, Urine 2+ (Neg); Color, Urine Yellow (P-Yellow); Glucose Qualitative, Urine 4+ (Neg); Ketones, Urine Neg (Neg); Leukocyte Esterase, Urine Neg (Neg); Nitrite, Urine Neg (Neg); Protein, Urine 4+ (Neg); Urobilinogen, Urine NORM (Normal)
[2020-01-17 06:07] LABS: Bacteria Few /hpf; Red Blood Cells, Urine 0-2 /hpf (0-2); Squamous Epithelial Cells Not Seen /hpf (Few)
--- NOTE | 2020-01-17 06:10 | NUR ---
ARRIVAL TO ICU 0430 - PT ARRIVES FROM ED TO ICU AT THIS TIME. HE IS INTUBATED AND SEDATED ON PROPOFOL. PROPOFOL GTT INFUSING. BUE RESTRAINED TO PROTECT ETT AND LINES. OGT SECURED AND ATTACHED TO LIWS. VENT AC 16, 450, PEEP 5, FIO2 40%. OSBORNE CATH SECURED AND PATENT. PT IN NSR, 90S. LUNG SOUNDS COARSE. OGT OUTPUT IS PINK AND THICK. BOTH ORAL SPUTUM AND ETT SECRETIONS ARE PINK AND BLOOD STREAKED. AFEBRILE. UNABLE TO OBTAIN ACCURATE MEDICATION LIST OR MEDICAL HISTORY AT THIS TIME. WILL MONITOR.
--- NOTE | 2020-01-17 07:20 | NUR ---
ASSUMED CARE BEDSIDE REPORT RECIEVED. PT IS INTUBATED AND SEDATED. PT IS RESTLESS AND THRASHING IN BED AT THIS TIME. VENT SETTINGS AC 16, TV 450, PEEP 5, FIO2 50%. PT WITH BLOOD NOTED WITH ETT SECRETIONS. OGT IN PLACE WITH PINK/CLEAR OUTPUT NOTED. IV'S TO RIGHT ARM WITH PROPOFOL INFUSING AT 35 MCG/KG/MIN. OSBORNE TEMP PROBE IN PLACE WITH MINIMAL AMOUNT OF NATE OUTPUT NOTED. PT IS DIALYSIS PT, FISTULA NOTED TO YONATHAN. SBW RESTRAINTS IN PLACE. WILL CONTINUE TO MONITOR.
[2020-01-17 10:22] LABS: BASOPHILS ABSOLUTE AUTO 0.05 K/mm3 (0.00-0.23); BASOPHILS PERCENT AUTO 1 % (0-2); EOSINOPHILS PERCENT AUTO 6 % (0-6); Hematocrit 27.4 % (37.0-53.0); Hemoglobin 8.5 g/dL (13.5-17.5); IMMATURE GRAN ABSOLUTE AUTO 0.07 K/mm3 (0.00-0.10); IMMATURE GRAN PERCENT AUTO 1 % (0-1); LYMPHOCYTES ABSOLUTE AUTO 1.78 K/mm3 (0.84-5.20); LYMPHOCYTES PERCENT AUTO 21 % (21-46); MONOCYTES ABSOLUTE AUTO 0.77 K/mm3 (0.16-1.47); MONOCYTES PERCENT AUTO 9 % (4-13); Mean Corpuscular HGB 30.2 pg (26.0-34.0); Mean Corpuscular Volume 98 fL (80-100); Mean Platelet Volume 9.5 fL (9.1-12.4); NEUTROPHILS ABSOLUTE AUTO 5.21 K/mm3 (1.96-9.15); NEUTROPHILS PERCENT AUTO 62 % (41-73); Platelet Count 236 K/mm3 (150-400); RDW Coefficient Variation 14.8 % (11.7-14.2); RDW Standard Deviation 52.7 fL (35.1-46.3); Red Blood Cell Count 2.81 M/mm3 (4.30-5.90); White Blood Cell Count 8.38 K/mm3 (4.00-11.30)
[2020-01-17 10:27] LABS: Hematocrit 27.7 % (37.0-53.0); Hemoglobin 8.5 g/dL (13.5-17.5)
[2020-01-17 10:44] LABS: Magnesium, Blood 2.3 mg/dL (1.6-2.4)
[2020-01-17 10:59] LABS: Albumin, Blood 2.6 g/dL (3.4-5.0); Albumin/Globulin Ratio 0.7 (0.8-1.8); Bilirubin, Total 0.2 mg/dL (0.1-1.0); Bun/Creatinine Ratio 7.7 (12.0-20.0); Calcium, Blood 7.7 mg/dL (8.5-10.1); Creatinine, Blood 9.69 mg/dL (0.60-1.20); Globulin, Blood 3.5 g/dL (2.2-4.0); Potassium, Blood 5.4 mmol/L (3.5-5.5)
[2020-01-17 11:00] LABS: Total Protein, Blood 6.1 g/dL (6.4-8.2); Troponin I 2.64 ng/mL (0.000-0.040)
[2020-01-17 11:11] LABS: Albumin, Blood 2.6 g/dL (3.4-5.0); Anion Gap 12 mmol/L (6-16); Blood Urea Nitrogen 74 mg/dL (8-24); Bun/Creatinine Ratio 7.5 (12.0-20.0); CO2, Blood 24 mmol/L (21-32); Calcium, Blood 7.7 mg/dL (8.5-10.1); Chloride, Blood 105 mmol/L (98-108); Creatinine, Blood 9.81 mg/dL (0.60-1.20); Glomerular Filtration Rate 6 (60-); Glucose, Blood 114 mg/dL (70-99); Potassium, Blood 5.4 mmol/L (3.5-5.5); Sodium, Blood 141 mmol/L (136-145)
--- NOTE | 2020-01-17 11:12 | NUR ---
UNABLE TO SIGN THE CONSENT. TWO SIGNATURES AQUIREES.
--- NOTE | 2020-01-17 18:43 | NUR ---
SHIFT SUMMARY NO ACUTE CHANGES THIS SHIFT. PT REMAINS INTUBATED AND SEDATED. VENT SETTINGS UNCHANGED. PT SEDATED WITH PROPOFOL AT 25 MCG/KG/MIN. PT CONTINUES TO HAVE PERIODS OF RESTLESSNESS AND THRASHING IN BED. PT CALMS THEN IS RESTING QUIETLY. PT UNABLE TO FOLLOW COMMANDS. PT RECIEVED DIALYSIS THIS AM. BP HAS BEEN LABILE THIS SHIFT. PT ON LEVOPHED VIA PERIPHERAL IV PER DR. NOGUERA DURING DIALYSIS. LEVOPHED HAS REMAINED ON STANDBY SINCE COMPLETION OF DIALYSIS. OGT REMAINS IN PLACE, CLAMMPED AT THIS TIME. OSBORNE REMAINS IN PLACE WITH MINIMAL AMOUNT OF NATE OUTPUT NOTED. SBW RESTRIANTS REMAIN IN PLACE. WILL CONTINUE TO MONITOR AND REPORT OFF TO ONCOMING RN.
[2020-01-17 18:56] LABS: Troponin I 9.54 ng/mL (0.000-0.040)
--- NOTE | 2020-01-17 19:00 | NUR ---
ASSUMED CARE ASSUMED CARE OF PATIENT. REMAINS INTUBATED- AC 16, TV 450, PEEP 5, FIO2 50%. SEDATED WITH PROPOFOL @ 25MCG/KG/MIN. PERIODS OF AGITATION- PT OCCASIONALLY KICKS LEGS AND STOMPS FEET ON BED. FOLLOWS SIMPLE COMMANDS. BILATERAL SOFT WRIST RESTRAINTS IN PLACE TO PREVENT SELF-EXTUBATION. MONITOR SHOWS NSR, RATE 90s. BP STABLE. OG IS CLAMPED AT THIS TIME. OSBORNE PATENT AND DRAINING SMALL AMOUNT OF NATE URINE. SEE SHIFT ASSESSMENT FOR FULL ASSESSMENT.
--- NOTE | 2020-01-17 20:35 | NUR ---
CODE STATUS DR. HUMMEL IN TO CONSULT ON PT. AFTER DISCUSSING WITH PT'S SISTER, DECISION WAS MADE TO MEDICALLY MANAGE PATIENT AND PROVIDE NO FURTHER ESCALATION OF CARE, INCLUDING VASOPRESSORS. PT IS NOW A DNR.
[2020-01-18 05:31] LABS: BASOPHILS ABSOLUTE AUTO 0.04 K/mm3 (0.00-0.23); BASOPHILS PERCENT AUTO 0 % (0-2); EOSINOPHILS ABSOLUTE AUTO 0.51 K/mm3 (0.00-0.68); EOSINOPHILS PERCENT AUTO 6 % (0-6); Hematocrit 28.6 % (37.0-53.0); Hemoglobin 8.8 g/dL (13.5-17.5); IMMATURE GRAN ABSOLUTE AUTO 0.06 K/mm3 (0.00-0.10); IMMATURE GRAN PERCENT AUTO 1 % (0-1); LYMPHOCYTES ABSOLUTE AUTO 0.99 K/mm3 (0.84-5.20); LYMPHOCYTES PERCENT AUTO 11 % (21-46); MONOCYTES ABSOLUTE AUTO 0.78 K/mm3 (0.16-1.47); MONOCYTES PERCENT AUTO 8 % (4-13); Mean Corpuscular HGB 29.4 pg (26.0-34.0); Mean Corpuscular HGB Conc 30.8 g/dL (31.5-36.5); Mean Corpuscular Volume 96 fL (80-100); Mean Platelet Volume 9.4 fL (9.1-12.4); NEUTROPHILS PERCENT AUTO 74 % (41-73); Platelet Count 208 K/mm3 (150-400); RDW Coefficient Variation 14.7 % (11.7-14.2); RDW Standard Deviation 50.7 fL (35.1-46.3); Red Blood Cell Count 2.99 M/mm3 (4.30-5.90); White Blood Cell Count 9.28 K/mm3 (4.00-11.30)
[2020-01-18 06:14] LABS: Albumin, Blood 3.2 g/dL (3.4-5.0); Anion Gap 13 mmol/L (6-16); Blood Urea Nitrogen 52 mg/dL (8-24); Bun/Creatinine Ratio 6.3 (12.0-20.0); CO2, Blood 26 mmol/L (21-32); Calcium, Blood 8.1 mg/dL (8.5-10.1); Chloride, Blood 99 mmol/L (98-108); Creatinine, Blood 8.28 mg/dL (0.60-1.20); Glomerular Filtration Rate 7 (60-); Glucose, Blood 129 mg/dL (70-99); Phosphorus, Blood 8.5 mg/dL (2.5-4.9); Potassium, Blood 5.3 mmol/L (3.5-5.5); Sodium, Blood 138 mmol/L (136-145)
--- NOTE | 2020-01-18 06:23 | NUR ---
SHIFT SUMMARY NO ACUTE CHANGES DURING NOC. REMAINS INTUBATED WITH SAME VENT SETTINGS. CONTINUES WITH THIN BLOODY SECRETIONS FROM ETT. SEDATED WITH PROPOFOL BETWEEN 25-35MCG/KG/MIN- NOW INFUSING @ 30MCG/KG/MIN. MEDICATED WITH FENTANYL 25MCG IV X 1 DOSE AN ADJUNCT TO SEDATION. PT HAS PERIODS OF RESTLESSNESS AND AGITATION. BILATERAL SOFT WRIST RESTRAINTS REMAIN ON TO PREVENT SELF-EXTUBATION. REACHES FOR TUBES/LINES WHEN RESTRAINTS LOOSE. DENIES C/O PAIN BY SHAKING HEAD NO. PT POINTS AT ETT AND SHAKES HEAD NO, WELL. FOLLOWS SIMPLE COMMANDS. MONITOR SHOWS SR, RATE 70s-90s. HYPOTENSIVE AT TIMES. TMAX 99.8F. OG TO LIS WITH SMALL AMOUNT OF PINKISH-YELLOW DRAINAGE. OSBORNE PATENT AND DRAINING SMALL AMOUNTS OF NATE URINE- 135CC TOTAL DURING SHIFT. PLAN IS TO DIALYZE PT THIS AM. PT REMAINS DNR. WILL REPORT TO ONCOMING RN WHEN AVAILABLE.
--- NOTE | 2020-01-18 07:30 | NUR ---
ASSUMED CARE BEDSIDE REPORT RECIEVED. PT IS INTUBATED AND SEDATED. VENT SETTINGS AC 16, TV 450, PEEP 5, FIO2 50%. PT AROUSES TO VERBAL STIMULI AND WILL SQUEEZE HANDS UPON COMMANDS. PT RESTLESS AT TIMES AND KICKS LEGS IN BED. PT SEDATED WITH PROPOFOL AT 30 MCG/KG/MIN. NS INFUSING TKO. OGT IN PLACE TO LIS WITH NO NEW OUTPUT NOTED. OSBORNE IN PLACE WITH MINIMAL AMOUNT OF NATE URINE OUTPUT NOTED. SBW RESTRAINTS IN PLACE. DIALYSIS FISTULA NOTED TO YONATHAN. VITAL SIGNS STABLE AT THIS TIME. WILL CONTINUE TO MONITOR.
--- NOTE | 2020-01-18 09:43 | NUR ---
Pt resting in bed and is intubated. Reviewed chart including parts delivery driver note. Conversation took place with Pt's sister regarding plan of care and goals of care. Sister would like Pt extubated and place on comfort care and would like to discontinue dialysis. Spoke with Dr Barron and discussed case. Dr Barron plans to call sister to discuss case and confirm wishes. Palliative Care will make F/U phone call if needed for therapeutic support. Palliative Care will remain available.
--- NOTE | 2020-01-18 10:10 | NUR ---
PLAN OF CARE UPDATE BOTH DR GONZALEZ AND DR HUMMEL HAVE CONTACTED PT'S SISTER SHEILA TO DISCUSS PROGNOSIS AND PLAN OF CARE. DECISION HAS BEEN MADE TO CONTINUE WITH DIALYSIS TREATEMENTS, BUT WITHDRAW PT FROM MECHANICAL VENTILATION THIS AFTERNOON AFTER DIALYSIS. DISCUSSED POSSIBILITY OF SHEILA TO COME VISIT PT PRIOR TO EXTUBATION WITH STOCK FEEDERYAMILETH DING.
--- NOTE | 2020-01-18 16:32 | NUR ---
FAMILY VISIT/UPDATE DIALYSIS COMPLETE. PT SISTER VANESSA ON THE WAY TO COME SEE PT PRIOR TO EXTUBATION. PLAN TO EXTUBATE TO COMFORT CARE. PALLIATIVE CARE AT BEDSIDE AT THIS TIME. PT IS SEDATED WITH PROPOFOL, BUT IS ABLE TO SHAKE HEAD YES OR NO TO QUESTIONS APPROPRIATELY AND SQUEEZE HANDS APPROPRIATELY. WILL CONTINUE TO MONITOR.
--- NOTE | 2020-01-18 17:16 | NUR ---
EXTUBATION PT EXTUBATED AT 1700 WITH FAMILY AT BEDSIDE. PT IS DOING WELL ON 1.5L O2 NC. PT CONFIRMED DNR STATUS. PT IS ALERT AND ORIENTED. PT IS DISCUSSING CARE WISHES WITH SISTER AT BEDSIDE AT THIS TIME. WILL CONTINUE TO MONITOR.
--- NOTE | 2020-01-18 17:29 | NUR ---
Pt's sister Lynne and sister in law Desi arrive to Pt's room. Bedside YAMILETH Gee and RT Ghanshyam extubate Pt. Pt's sedation turned off. Pt denies pain and dyspnea at this time. Gerard discusses with Pt regarding his wishes for life sustaining measures. Pt reports he does not want to CPR or to be intubated. Sister Lynne discusses with Pt regarding condition of his heart. Discussion regarding dialysis also occurs with Pt responding "I guess". Pt appears unsure of what his wishes are regarding dialysis. Suggested to allow Pt to process information. Family remains behind and this RN ends visit. Instructed Pt Palliative Care will F/U with tomorrow. Family expresses appreciation of visit. Spoke with Bedside YAMILETH Gee and discussed case. Palliative Care will remain available.
--- NOTE | 2020-01-18 18:15 | NUR ---
Received call from ICU antique furniture repairerYAMILETH Gallegos. Pt wanting to leave this evening with hospice. Arrived to Pt's room with Pt appearing frustrated, angry, and anxious. Offered for Pt to discuss concerns and fears. Pt not very receptive of conversation at this time. Offered therapeutic voice. YAMILETH Gallegos, YAMILETH Gee, and sister Lynne also present. After several minutes of reasuring Pt, he is agreeable to stay in the hospital over night to allow staff to set up hospice for Pt. YAMILETH Gee calls Dr Barron and obtains V/O for comfort medications. Lynne reports Pt is threatening to kill himself when he returns home. Hospice agency will need to be made aware. Discussed with Lynne about removing all weapons and items the Pt may use to harm himself from the home. Lynne V/U. Family is requesting hospice agency that is available the soonest. Pt and family live in [place]. Palliative Care will remain available.
--- NOTE | 2020-01-18 18:46 | NUR ---
SHIFT SUMMARY/REPORT TO MEDICAL PT IS COMFORT CARE STATUS POST EXTUBATION AT 1700. PT INITIALLY ATTEMPTING TO LEAVE TO GO HOME, BUT WITH DISCUSSION OF PT, SISTER, AND PALLIATIVE CARE RN, PT IS AGGREEABLE TO STAY UNTIL HOSPICE CAN BE SET UP AT HOME. PT IS ALERT AND ORIENTED. REPORT CALLED TO MIKE CARSON, TO ASSUME CARE ON MEDICAL FLOOR. DENZEL GRACE TO TAKE PT UP TO MEDICAL FLOOR AT THIS TIME. ALL BELONGINGS TAKEN WITH PT. SEE PREVIOUS NOTES TO SEE MORE SHIFT INFO.
--- NOTE | 2020-01-18 22:08 | NUR ---
PT T/F FROM ICU TO MEDICAL FLOOR AT 1900. PT ARRIVED ACCOMPANIED BY FAMILY. PT COMMUNICATING NEEDS. A/OX3. REPORTS CHRONIC BACK PAIN. CONTROLLED AT THIS TIME. REQUESTING FOOD AND FLUIDS- WILL ADAT PER ORDERS. PT COMFORT CARE STATUS. WILL CONT TO MONITOR.
--- NOTE | 2020-01-19 05:15 | NUR ---
SHIFT SUMMARY: PT COMFORT CARE STATUS. AAOX3. COMMUNICATES NEEDS. RENE PO INTAKE WELL. OCCASIONAL COUGHING. RESPS REGULAR, NON-LABORED. PRN ANALGESICS ADMINISTERED X4 UP UNTIL NOW FOR BACK PAIN. PT REPORTS PAIN MEDS EFFECTIVE. WAS ABLE TO SLEEP SOME BUT REPORTS HE IS NOT TIRED. AWAKE IN ROOM, WATCHING TV AND DRINKING COFFEE AT THIS TIME. WILL CONT TO MONITOR.
--- NOTE | 2020-01-19 09:53 | NUR ---
Received call from Pt's Bedside YAMILETH Dyson and discussed case. Karis reports Dr Bañuelos visited with Pt this AM and Pt has decided to resume dialysis but intermittently states he is unsure what he wants to do. Pt sitting on edge of bed upon arrival. Engaged in therapeutic disussion with Pt regarding goals of care. Listened and ansered questions for Pt. Educated Pt on disease process of his heart. Pt V/U that dialysis will not improve his heart condition and would like to continue dialysis. Continued therapeutic listening. Pt reports no other concerns at this time. Spoke with Dr Burgos and discussed case. Dr Burgos will adjust orders after round on Pt. Called Dr Bañuelos per his request and discussed case. Spoke with Pt's sister Lynne per her request. Lynne expresses frustration regarding Dr Bañuelos rounding on Pt after consultation was D/C. Lynne expresses concerns regarding Pt's quality of life. Offered therapeutic listening and discussed concerns. Lynne expresses appreciation of conversation and reports no other concerns at this time. Spoke with Caremanleonardo Houston and discussed the need to cancell hospice referral. Palliative Care will remain available.
--- NOTE | 2020-01-19 17:38 | NUR ---
SHIFT SUMMARY- PT SLEPT FOR MUCH OF THIS SHIFT. PROVIDED PAIN MEDICATION THIS MORNING BUT PT DENIED PAIN THE REST OF THIS SHIFT. PALATIVE CARE, DR. HUGHES, THE PT AND HIS FAMILY DISCUSSED HIS COMFORT CARE STATUS. IT WAS DECIDED THAT THE PT WANTED TO CONTINUE WITH DIALYSIS AND HIS MEDICATIONS. PLAN TO KEEP PT OVER THE WEEKEND AND POSSIBLY DISCHARGE WEDNESDAY.
--- NOTE | 2020-01-19 20:35 | NUR ---
met with patient family and Physician. pt distraught making statements of not wanting to go on but not sure what to do. consoled patient and encouraged he keep on track for now and if his suffering is to great to speak to his family and his doctors. His ster relays he eats foods he should not eat and dirnks lots of fluid after dialysis. States he misses his meds. She ralays depression and grief since his . Physicn reviewed his cardiac history and prognosis. Reiview with family some of the fears and stresses patients on dialysis face in decision making when getting closer to end of life. pt pps score is 30%
--- NOTE | 2020-01-20 03:34 | NUR ---
0330 PT HAS NOT VOIDED THIS SHIFT. PT BLADDER SCAN, NO URINE NOTED. PT DENIES NEED TO VOID. WCTM.
[2020-01-20 05:00] LABS: Hematocrit 33.5 % (37.0-53.0); Hemoglobin 10.2 g/dL (13.5-17.5); Mean Corpuscular HGB 29.8 pg (26.0-34.0); Mean Corpuscular HGB Conc 30.4 g/dL (31.5-36.5); Mean Corpuscular Volume 98 fL (80-100); Mean Platelet Volume 9.5 fL (9.1-12.4); Platelet Count 262 K/mm3 (150-400); RDW Coefficient Variation 14.7 % (11.7-14.2); Red Blood Cell Count 3.42 M/mm3 (4.30-5.90); White Blood Cell Count 11.23 K/mm3 (4.00-11.30)
[2020-01-20 05:41] LABS: Albumin, Blood 3.6 g/dL (3.4-5.0); Anion Gap 17 mmol/L (6-16); Blood Urea Nitrogen 65 mg/dL (8-24); CO2, Blood 24 mmol/L (21-32); Calcium, Blood 8.2 mg/dL (8.5-10.1); Chloride, Blood 92 mmol/L (98-108); Glucose, Blood 123 mg/dL (70-99); Sodium, Blood 133 mmol/L (136-145)
[2020-01-20 06:08] LABS: Bun/Creatinine Ratio 7.5 (12.0-20.0); Creatinine, Blood 8.68 mg/dL (0.60-1.20); Glomerular Filtration Rate 7 (60-); Potassium, Blood 6.1 mmol/L (3.5-5.5)
--- NOTE | 2020-01-20 06:09 | NUR ---
0600 LAB CALLED FOR CRITICAL LAB NOTIFICATION. DR RAMIREZ CALLED AND ORDERED TO NOTIFY LAURAYAIA NURSE OF LABS @ 0700 HRS.
[2020-01-20 06:14] LABS: Phosphorus, Blood 14.2 mg/dL (2.5-4.9)
--- NOTE | 2020-01-20 06:42 | NUR ---
SUMMARY PT HAS SAT IN HIS CHAIR MOST OF SHIFT WATCHING TV. PT IS VERY RHONCHUS AND REQUIRING SUCTION AT TIMES. PT BLADDER SCANNED DUE TO NO URINE OUTPUT NOTED. NOTHING NOTED ON BLADDER SCAN. PT MOVED TO BED AND HAS BEEN SLEEPING. PT DENIES SOB AND SPO2 >90%. CALL LIGHT IN REACH.
--- NOTE | 2020-01-20 12:44 | NUR ---
PT RETURNED FROM DIALYSIS THIS MORNING AND IS VERY FATIGUED AND DUSKY IN COLOR. HE WAS A MAX ASSIST BACK TO BED AND IMMDEDIATELY FELL BACK ASLEEP. HE REFUSED HIS NOON MED AND LUNCH WAS HELD HE IS NOT SAFE TO SWALLOW AT THIS POINT. DR HUGHES WAS NOTIFIED AND SAID SHE WOULD STOP BY AND SEE HIM. THE CHARGE NURSE WAS NOTIFIED AND A MESSAGE LEFT FOR THE PALLIATIVE CARE NURSE.
--- NOTE | 2020-01-20 14:32 | NUR ---
FENTANYL PATCH DCD BY PROVIDER BUT NOT FOUND ON PT. 2 NURSE CHECK WITH DEALERSHIP MANAGER.
--- NOTE | 2020-01-20 15:48 | NUR ---
SHIFT SUMMARY THIS MORNING PT WAS ALERT TO SELF AND SITUATION BUT VERY FATIGUED AND DUSKY IN COLOR. THE CHARGE NURSE WAS MADE AWARE AND THE PT WENT TO DIALYSIS SCHEDULED BY DR RAMIREZ. DIALYSIS NURSE WAS MADE AWARE OF THE MORNING LABS. AFTER RETURNING FROM DIALYSIS PT WAS EVEN MORE DROWSY AND DIFFICULT TO AROUSE. HE WAS ASSISTED BACK TO BED. HIS LUNGS SOUND WET AND COARSE. PT HAS BEEN DIAPHORETIC AND WAS ASSISTED WITH A PARTIAL BED BATH AND DRY GOWN. WAS NOTIFIED AND CAME TO SEE THE PT AND AFTER SPEAKING WITH THE FAMILY HE WAS CHANGED BACK TO COMFORT CARE. PALLIATIVE CARE NURSE WAS NOTIFIED. PT FAMILY IS NOW AT THE BEDSIDE. HE WAS MEDICATED FOR AIR HUNGER AND HIS SYMPTOMS HAVE MILDLY IMPROVED. A PATCH WAS ALSO PLACED TO HELP EASE THE DISCOMFORT OF HIS SECRETIONS. ORAL SUCTION WAS ATTEMPTED BUT HE TURNED HIS HEAD AWAY. COMFORT CART OF FOOD AND DRINK WAS ORDERED FOR THE FAMILY. FAMILY IS THANKFUL FOR HIS CARE AND THE NURSING STAFF AT [facility]. PT IS RESTING COMFORTABLY IN BED.
--- NOTE | 2020-01-20 16:51 | NUR ---
APPROX 1640 THIS NURSE WAS CALLED BY IT SENIOR ANALYST TO PT ROOM. PT RESPIRATIONS HAVE STOPPED AND PT HAS NO PULSE. CHARGE NURSE, NURSING SUP,DOCTOR AND FAMILY WERE ALL NOTIFIED AND FAMILY WAS VERY UNDERSTANDING AND GRATEFUL FOR HIS CARE HERE. FAMILY WOULD LIKE THE PT BODY SENT TO [facility] IN [place] AND THIS WAS PASSED ALONG TO THE CHARGE NURSE. POST MORTUM CARE PERFORMED BY DENZEL.
== END 2020-01-20 16:40 | DRG 208 ==
LOC: ER 02:02 → ICUE 04:30 → MEDS 04:30 → ICUW 04:30 → ICUE 04:35 → MEDS 01-18 19:28
PROVIDERS: Emergency Medicine; Internal Medicine; Internal Medicine Critical Care Medicine; Internal Medicine Nephrology; ADMIT Internal Medicine
PROC: 0BH17EZ Insertion of Endotracheal Airway into Trachea, Via Natural or Artificial Opening (ICD-10-PCS; 2020-01-17)
PROC: 5A1945Z Respiratory Ventilation, 24-96 Consecutive Hours (ICD-10-PCS; 2020-01-17)
PROC: 5A1D70Z Performance of Urinary Filtration, Intermittent, Less than 6 Hours Per Day (ICD-10-PCS; principal; 2020-01-18)
PROC: 3E033XZ Introduction of Vasopressor into Peripheral Vein, Percutaneous Approach (ICD-10-PCS; 2020-01-18)
DX: J96.01 Acute respiratory failure with hypoxia (principal); I21.4 Non-ST elevation (NSTEMI) myocardial infarction; I50.23 Acute on chronic systolic (congestive) heart failure; N18.6 End stage renal disease; N17.9 Acute kidney failure, unspecified; K86.1 Other chronic pancreatitis; E87.2 Acidosis; J96.02 Acute respiratory failure with hypercapnia; Z79.82 Long term (current) use of aspirin; Z51.5 Encounter for palliative care; Z95.1 Presence of aortocoronary bypass graft; E11.22 Type 2 diabetes mellitus with diabetic chronic kidney disease; E66.9 Obesity, unspecified; Z99.2 Dependence on renal dialysis; I25.10 Atherosclerotic heart disease of native coronary artery without angina pectoris; E78.5 Hyperlipidemia, unspecified; Z87.891 Personal history of nicotine dependence; Z66 Do not resuscitate; E87.70 Fluid overload, unspecified; E87.5 Hyperkalemia; I35.0 Nonrheumatic aortic (valve) stenosis; E83.39 Other disorders of phosphorus metabolism; Z68.34 Body mass index [BMI] 34.0-34.9, adult
CPT/HCPCS: 31500; 31720; 36415; 36430; 36600; 51702; 71045; 71275; 74175; 76705; 80053; 80061; 80069; 81001; 82550; 82803; 82947; 83605; 83690; 83735; 83880; 84145; 84484; 85014; 85018; 85025; 85027; 86850; 86900; 86901; 86923; 87040; 87070; 87205; 93005; 93010; 93308; 93321; 94002; 94003; 94770; 96361; 96374; 96375; 96376; 99285-25; A9270-GY; J0330; J0881; J1644; J2060; J2250; J2405; J2704; J3010; J7030; J7040; J7050; J7060; P9016; P9046; Q9967